=== PATIENT | male | born 1995 | race Hispanic/Latino ===

== ENCOUNTER 2018-02-20 07:17 | Emergency (ER) | payer SELFPAY ==
[2018-02-20] MEDS ORDERED: Lidocaine 1% w/Epinephrine 1:100K 30 ML VIAL ONE (07:34)
== END 2018-02-20 08:28 | disposition home or self-care (01) ==
LOC: NAV ERS 07:17
DX: S01.01XA Laceration without foreign body of scalp, initial encounter (principal); W22.8XXA Striking against or struck by other objects, initial encounter
CPT/HCPCS: 12001; J2001